=== PATIENT | male | born 1970 | race Caucasian/White ===

== ENCOUNTER → 2016-10-28 | Outpatient (CLI) | payer OTHER, BC ==
--- NOTE | 2016-10-30 14:46 | DI ---
MRI LEFT SHOULDER SCAN, 10/28/2016 1:29 PM: Clinical History: Impingement syndrome of the left shoulder. Previous Exam: None at this facility. Technique: Axial, coronal, and sagittal fat saturated PD; axial gradient FE; coronal fat saturatedT2 weighted; sagittal T2 weighted. There is no soft tissue edema or abnormal bone signal pattern. There is no joint effusion. Mild arthr osis is present in the AC joint and there is a type I acromion. Increased signal intensity with thick ening is present in the supraspinatus tendon indicating tendinosis. The infraspinatus, teres minor, a nd subscapularis tendons in the tendon of the long head of the biceps muscle are normal. There is a p rominent anterior band of the IGHL with a high attachment and absence of the anterosuperior labrum. T he glenohumeral ligament has a normal appearance and configuration. There is a type II SLAP tear. Flu id is present in the tendon sheath of the tendon of the long head of the biceps muscle consistent wit h tenosynovitis. The articular surfaces of the humeral head and the glenoid fossa are normal. There i s no muscle atrophy noted. Readin. There is mild AC joint arthrosis with a type I acromion. Tendinosis of the supraspinatus tendon a nd tenosynovitis of the extra-articular portion tendon of the long head of the biceps tendon are pres ent. There is a type II SLAP tear. 2. The infraspinatus, teres minor and the subscapularis tendons as well as the tendon of the long he ad of the biceps muscle are normal. The glenoid labrum and articular surfaces of the glenohumeral kim nt are intact.
== END ==
LOC: MRI 13:19
PROVIDERS: ATTEND Orthopaedic Surgery
DX: M75.42 Impingement syndrome of left shoulder (principal); M19.012 Primary osteoarthritis, left shoulder; S43.432A Superior glenoid labrum lesion of left shoulder, initial encounter; M65.812 Other synovitis and tenosynovitis, left shoulder
CPT/HCPCS: 73221